=== PATIENT | male | born 1980 | race Hispanic/Latino ===

== ENCOUNTER 2017-12-21 22:33 | Emergency (ER) | payer OTHER ==
[2017-12-21] MEDS ORDERED: SODIUM CHLORIDE 0.9% 1000ML 1,000 ML IV ONE (22:42)
[2017-12-21] MEDS ORDERED: KETOROLAC TROMETHAMINE 30MG/ML ONE (22:42)
[2017-12-21] MEDS ORDERED: IOPAMIDOL-370 100 ML VIAL IV ONE (22:58)
[2017-12-22] MEDS ORDERED: LIDOCAINE HCL 1% 20 ML VIAL ONE (00:13)
[2017-12-22] MEDS ORDERED: TETANUS/DIPHTHERIA TOXOID [ADULT] 0.5 ML VIAL IM ONE (00:15)
[2017-12-22 00:56] LABS: AMPHET/METH SCREEN,URINE NEGATIVE (NEGATIVE); BARBITURATE SCREEN, URINE NEGATIVE (NEGATIVE); BENZODIAZEPINES SCREEN,URINE NEGATIVE (NEGATIVE); CANNABINOID SCREEN,URINE NEGATIVE (NEGATIVE); COCAINE SCREEN,URINE NEGATIVE (NEGATIVE); OPIATE SCREEN,URINE NEGATIVE (NEGATIVE); PHENCYCLIDINE SCREEN,URINE NEGATIVE (NEGATIVE)
== END 2017-12-22 01:50 | disposition home or self-care (01) ==
LOC: EDH 22:33
DX: S01.311A Laceration without foreign body of right ear, initial encounter (principal); V49.49XA Driver injured in collision with other motor vehicles in traffic accident, initial encounter; Y93.89 Activity, other specified; Y92.89 Other specified places as the place of occurrence of the external cause; Y99.8 Other external cause status
CPT/HCPCS: 12013; 70450; 71260; 72125; 74177; 80305; 90471; 90714; 96374; 99285; J1885; J7030; Q9967; 12002